=== PATIENT | female | born 1960 | race Caucasian/White ===

== ENCOUNTER → 2021-09-08 | Outpatient (CLI) | payer MEDICARE, OTHER | LOC: HEART CORB 08:50 | DX: I25.118 Atherosclerotic heart disease of native coronary artery with other forms of angina pectoris (principal); R06.02 Shortness of breath; M25.473 Effusion, unspecified ankle; I10 Essential (primary) hypertension; E78.5 Hyperlipidemia, unspecified | CPT/HCPCS: 78452; A9502; J2785 ==